=== PATIENT | female | born 1990 | race Caucasian/White ===

== ENCOUNTER 2019-01-24 21:41 | Emergency (ER) | payer MEDICAID ==
[~2019-01-24] VITALS: Ht 160 cm; Wt 90.2 kg
[2019-01-24 22:07] VITALS: Ht 160 cm; Wt 90.2 kg
[2019-01-24 22:29] LABS: BASOPHILS 0.3 % (0-2); EOSINOPHILS 3.6 % (0-7); HEMATOCRIT 41.6 % (36.0-48.0); HEMOGLOBIN 14.9 g/dL (12-16); IMMATURE GRANULOCYTES 0.4 % (0-5); LYMPHOCYTES 40.9 % (15-50); MCH 32.4 pg (26.0-34.0); MCHC 35.8 g/dL (31.0-37.0); MCV 90.4 fL (80.0-100.0); MEAN PLATELET VOLUME 8.6 fL (7.4-10.4); MONOCYTES 8.1 % (2-11); NEUTROPHILS 46.7 % (40-80); PLATELET COUNT 324 10x3/uL (130-400); RDW 12.3 % (11.5-14.5); WBC 12.8 10x3/uL (4.8-10.8)
[2019-01-24 22:34] LABS: APTT 35.2 SECONDS (22.8-39.4); INR 0.96 (0.85-1.17); PROTIME 12.3 SECONDS (11.6-15.0)
[2019-01-24 22:48] LABS: ALKALINE PHOSPHATASE 70 U/L (46-116); ALT (SGPT) 57 U/L (10-68); BILIRUBIN - TOTAL 0.27 mg/dL (0.2-1.3); CALC OSMOLALITY 278 mosm/kg (275-300); CARBON DIOXIDE 31.4 mmol/L (21.0-32.0); CHLORIDE - SERUM 102 mmol/L (98-107); GLUCOSE 91 mg/dL (74-106); POTASSIUM - SERUM 3.6 mmol/L (3.5-5.1); PROTEIN - SERUM 7.8 g/dL (6.4-8.2); SODIUM 139 mmol/L (136-145); UREA NITROGEN 15 mg/dL (7-18); eGFR NON AFRICAN AMERICAN 69 mL/min (90-120)
[2019-01-24 22:54] LABS: CKMB 0.5 U/L (0.0-3.6); CREATINE KINASE 65 UL (21-215); MAGNESIUM - SERUM 2.2 mg/dL (1.8-2.4); TROPONIN-I < 0.017 ng/mL (0.000-0.060)
[2019-01-25 02:39] VITALS: BP 97/65
== END 2019-01-25 02:39 | disposition home or self-care (01) ==
LOC: D.ER 21:41
PROVIDERS: Family Medicine
DX: R07.89 Other chest pain (principal)

== ENCOUNTER 2020-01-21 07:05 | Day surgery (SDC) | payer MEDICAID ==
--- NOTE | 2020-01-19 09:38 | NUR ---
ANTON NOTE: T97.0 L0WLC28% P76 R20 BP108/69
[2020-01-19 10:53] LABS: HEMATOCRIT 44.5 % (36.0-48.0); MCH 30.6 pg (26.0-34.0); MCHC 33.7 g/dL (31.0-37.0); MCV 90.8 fL (80.0-100.0); MEAN PLATELET VOLUME 8.3 fL (7.4-10.4); RBC 4.9 10x6/uL (4.00-5.40); RDW 12.9 % (11.5-14.5); WBC 9.4 10x3/uL (4.8-10.8)
[~2020-01-21] VITALS: Ht 160 cm; Wt 93.0 kg
[~2020-01-21 07:05] MED LIST: ADVIL200 MG PO
[2020-01-21] MEDS ORDERED: BENADRYL25 MG PO (07:26)
[2020-01-21 07:27] LABS: HCG URINE NEGATIVE (NEGATIVE)
[2020-01-21 07:38] VITALS: BP 107/60; Ht 160 cm; Wt 93.0 kg
--- NOTE | 2020-01-21 09:16 | NUR ---
0914 BLOCK ON LEFT KNEE PERFORMED BY BRIANDA TREJO. PT DROWSY BUT AROUSES EASILY TO VERBAL STIMULI. VSS
--- NOTE | 2020-01-21 09:18 | NUR ---
0919 PT BEING TRANSPORTED VIA STRETCHER TO OR
[2020-01-21] MEDS ORDERED: HYDROCODON-ACE1 EA10 PO (10:17)
--- NOTE | 2020-01-21 16:13 | NUR ---
1235 IV DC'D. CATHETER TIP INTACT. NO BLEEDING AT SITE. BANDAID APPLIED.
--- NOTE | 2020-01-22 14:21 | OP ---
PATIENT NAME: RIKA SANDOVAL MEDICAL RECORD: [id number] :86 LOCATION:D.OPS ADMISSION DATE: SURGEON: LACY BRENNER MD DATE OF OPERATION: 01/21/2020 PREOPERATIVE DIAGNOSES: 1. Anterior cruciate ligament tear of the right knee. 2. Patellofemoral syndrome of the right knee. POSTOPERATIVE DIAGNOSES: 1. Anterior cruciate ligament tear of the right knee. 2. Patellofemoral syndrome of the right knee. PROCEDURES: 1. Arthroscopic anterior cruciate ligament reconstruction allograft. 2. Arthroscopic lateral release. SURGEON: Lacy Brenner MD BATTERY INSPECTOR: LOPEZ Jeffries ANESTHESIA: General. INTRAOPERATIVE COMPLICATIONS: None. SUMMARY OF PATHOLOGIC FINDINGS: The patient with a definite mid substance tear of the anterior cruciate ligament. Furthermore, the patient's medial and lateral meniscus seemed to be pristine. The MRI suggested that there may be a tear of the medial meniscus; however, one was not seen after substantial probing. The patient did have patellofemoral syndrome; however, the cartilaginous surfaces seemed to be intact with no substantial chondromalacia. It was very laterally riding. OPERATIVE SUMMARY IN DETAIL: After obtaining the appropriate preoperative orthopedic surgery consent as well as anesthetic consultation, evaluation and clearance, the patient was brought to the operating room and placed on the operative table in supine position. After adequate general laryngeal mask airway was administered, tourniquet was placed about the proximal aspect of the right lower extremity. Right lower extremity was then prepped and draped in routine sterile fashion. The leg was elevated and exsanguinated. Tourniquet was inflated to 350 mmHg. At this point, the appropriate timeout was taken and agreed upon by all given the patient's unique identifiers. It was of note that the patient had a very positive pivot shift with exam under anesthesia. Inferolateral portal was established followed by superomedial portal and inferomedial portal. Diagnostic arthroscopy was consistent with the above findings. Attention was first turned to the ACL reconstruction. The footprint was taken down as was the notch. The notch was a type A and it was treated with formal notchplasty. The 11-mm guide hole for the 10-mm ACL graft was created in the tibia under direct arthroscopic visualization. This was followed by creating a 30-mm socket in the appropriate position on the femur. The guide suture was then carried through to pull the graft into place. The graft was gently pulled into place into the femoral socket with excellent position. The TightRope was then deployed with a substantial amount of tension held on the distal aspect of the graft. After several arranges and several retightening, distal fixation was achieved with a 6.5 bicortical post from [employer]. Having OPERATIVE REPORT [id number] RKIA SANDOVAL completed this, arthroscopy had already been established. The portal visualization was moved to the medial side for visualization of the lateral retinaculum. Hook tip [place] ablation system was then utilized to perform a lateral release from the inferior aspect of the vastus lateralis to the inferolateral portal. Having completed this, arthroscopy portals and the small incision portals were closed in routine interrupted fashion by LOPEZ Jeffries. Sterile dressings were applied after the tourniquet was deflated. The patient was placed in a hinged knee brace at 0-30. She was then awakened and taken to recovery room in stable condition. All final needle and sponge counts were correct. TRANSINT:[id number] Voice Confirmation ID: [id number] DOCUMENT ID: [id number] LACY BRENNER MD at 1421 CC: [id number] DICTATION DATE: 01/22/20 1057 IMPREGNATOR AND DRIER: 01/22/20 1322 [facility] 01/21/20 [id number] [place] [address]
== END 2020-01-21 13:27 | disposition home or self-care (01) ==
LOC: D.OPS 07:05 → D.PAN 09:00 → D.OPS 09:15 → D.PAN 09:15 → D.OPS 13:27
PROVIDERS: Anesthesiology; ATTEND Orthopaedic Surgery
DX: S83.511A Sprain of anterior cruciate ligament of right knee, initial encounter (principal); X58.XXXA Exposure to other specified factors, initial encounter; S83.242A Other tear of medial meniscus, current injury, left knee, initial encounter